=== PATIENT | female | born 1950 | race Two or more races ===

== ENCOUNTER → 2022-09-29 08:00 | Outpatient (CLI) | payer OTHER ==
[~2022-09-29] VITALS: Ht 160 cm; Wt 86.2 kg
[~2022-09-29 08:00] MED LIST: ADULT LOW DOSE81 M1 PO; GLIPIZ PO
== END | disposition home or self-care (01) ==
LOC: LAB 08:00 → EDSTATUS 10-04 08:00 → EDBD 10-04 08:00 → SURH 10-04 08:00
PROVIDERS: ATTEND Orthopaedic Surgery Sports Medicine
DX: Z01.818 Encounter for other preprocedural examination (principal); D68.9 Coagulation defect, unspecified; I10 Essential (primary) hypertension

== ENCOUNTER → 2023-04-05 06:00 | Outpatient (CLI) | payer OTHER ==
[~2023-04-05] VITALS: Ht 160 cm; Wt 82.6 kg
[~2023-04-05 06:00] MED LIST changes: +ATORVASTATIN CA40 MG PO; +HYDROCHLOROTH12.5 MG PO
== END | disposition home or self-care (01) ==
LOC: LAB 06:00 → SURG 04-11 12:32 → EDSTATUS 04-11 16:30
PROVIDERS: ATTEND Orthopaedic Surgery Sports Medicine
DX: Z01.810 Encounter for preprocedural cardiovascular examination (principal); Z01.811 Encounter for preprocedural respiratory examination; M17.12 Unilateral primary osteoarthritis, left knee; Z20.822 Contact with and (suspected) exposure to COVID-19